=== PATIENT | female | born 1975 | race African-American/Black ===

== ENCOUNTER 2022-03-14 14:53 | Outpatient (CLI) | payer OTHER | END 2022-03-14 14:54 | disposition home or self-care (01) | LOC: NAV RAD 14:53 | PROVIDERS: ATTEND Family Medicine | DX: Z02.71 Encounter for disability determination (principal); I50.20 Unspecified systolic (congestive) heart failure; I51.7 Cardiomegaly; Z95.0 Presence of cardiac pacemaker | CPT/HCPCS: 71046 ==